=== PATIENT | male | born 1955 | race Caucasian/White ===

== ENCOUNTER 2021-09-17 19:44 | Emergency (ER) | payer MEDICARE ==
[~2021-09-17] VITALS: Ht 193 cm; Wt 118.5 kg
[2021-09-17 20:20] VITALS: BP 159/81
[2021-09-17] MEDS ORDERED: clindamycin 150mg capsule PO ONE (22:05)
[2021-09-17] MEDS ORDERED: CLIN300C3 PO (22:20)
== END 2021-09-17 22:27 | disposition home or self-care (01) ==
LOC: ER 19:46
DX: K04.7 Periapical abscess without sinus (principal); Z79.2 Long term (current) use of antibiotics
CPT/HCPCS: 99283